=== PATIENT | male | born 1940 | race Caucasian/White ===

== ENCOUNTER 2021-05-20 14:21 | Emergency (ER) | payer OTHER ==
[~2021-05-20] VITALS: Ht 175.3 cm; Wt 90.7 kg
[2021-05-20] MEDS ORDERED: TRIJARDY XR 251 EACH (15:10)
[2021-05-20] MEDS ORDERED: IBESARTAN (15:12)
[2021-05-20] MEDS ORDERED: MEDI-MECLIZINE25 MG PO (19:30)
== END 2021-05-20 20:26 | disposition home or self-care (01) ==
LOC: ER 14:21
DX: R42 Dizziness and giddiness (principal)

== ENCOUNTER 2022-10-23 11:57 | Emergency (ER) | payer OTHER ==
[~2022-10-23] VITALS: Ht 175.3 cm; Wt 83.5 kg
[~2022-10-23 11:57] MED LIST: IBESARTAN; MEDI-MECLIZINE25 MG PO; TRIJARDY XR 251 EACH
[2022-10-23] MEDS ORDERED: TRIJARDY XR 121 EACH (12:36)
[2022-10-23] MEDS ORDERED: GLIMEPIRIDE1 M1 (12:36)
[2022-10-23] MEDS ORDERED: SIMVASTATIN40 MG (12:36)
[2022-10-23] MEDS ORDERED: CLOPIDOGREL BIS75 MG (12:37)
[2022-10-23] MEDS ORDERED: TAMSULOSIN HCL0.4 MG (12:37)
[2022-10-23] MEDS ORDERED: ST. JOSEPH ASPI81 M2 (12:37)
== END 2022-10-23 17:24 | disposition home or self-care (01) ==
LOC: ER 11:57
DX: M62.838 Other muscle spasm (principal); I11.0 Hypertensive heart disease with heart failure; I50.9 Heart failure, unspecified; E88.81 Metabolic syndrome and other insulin resistance; N40.0 Benign prostatic hyperplasia without lower urinary tract symptoms; E78.00 Pure hypercholesterolemia, unspecified; E11.65 Type 2 diabetes mellitus with hyperglycemia; Z79.84 Long term (current) use of oral hypoglycemic drugs; Z95.1 Presence of aortocoronary bypass graft

== ENCOUNTER 2024-05-09 11:04 | Outpatient (CLI) | payer OTHER ==
[~2024-05-09 11:04] MED LIST changes: +CLOPIDOGREL BIS75 MG; +GLIMEPIRIDE1 M1; +SIMVASTATIN40 MG; +ST. JOSEPH ASPI81 M2; +TAMSULOSIN HCL0.4 MG; +TRIJARDY XR 121 EACH
== END 2024-05-09 11:08 | disposition home or self-care (01) ==
LOC: SONOGRAMA 11:04
PROVIDERS: ATTEND Internal Medicine
DX: E04.2 Nontoxic multinodular goiter (principal)

== ENCOUNTER 2025-01-29 08:47 | Outpatient (CLI) | payer OTHER | END 2025-01-29 08:48 | disposition home or self-care (01) | LOC: NUCLEAR 08:47 | PROVIDERS: ATTEND Psychiatry & Neurology Clinical Neurophysiology | DX: G31.84 Mild cognitive impairment of uncertain or unknown etiology (principal); G30.1 Alzheimer's disease with late onset | CPT/HCPCS: 78803; A9557 ==